=== PATIENT | male | born 1960 | race Two or more races ===

== ENCOUNTER 2018-10-05 06:28 | Day surgery (SDC) | payer OTHER ==
--- NOTE | 2018-10-04 19:28 | Pre-Procedure Note/Attestation ---
Pre-Procedure Note/Attestation Complete Prior to Procedure Planned Procedure: left Procedure Narrative: Repair left ear canal stenosis Indications for Procedure Pre-Operative Diagnosis: left ear canal stenosis Attestation I attest that I discussed the nature of the procedure; its benefits; risks and complications; and alternatives (and the risks and benefits of such alternatives ), prior to the procedure, with the patient (or the patient's legal enrollment eligibility representative). I attest that, if there was a reasonable possibility of needing a blood transfusion, the patient (or the patient's legal enrollment eligibility representative) was given the [facility] standardized written summary, pursuant to the Ryder Brian Blood Safety Act ([place] Health and Safety Code # 1645, as amended). I attest that I re-evaluated the patient just prior to the surgery and that there has been no change in the patient's H&P by the pts. PMD with normal labs. Tal Garcia MD Oct 04, 2018 19:28
--- NOTE | 2018-10-04 19:29 | Brief Operative Note ---
Immediate Post Operative Note Operative Note Chief Complaint: Left eacr canal stenosis Pre-op Diagnosis: left ear canal stenosis Procedure: Repair left ear canal stenosis Post-op Diagnosis: same as pre-op Surgeon: Tal Garcia Algologist: none Additional Surgeons: none Anesthesiologist: Erickson Anesthesia: MAC Specimen: yes Complications: none Condition: stable Fluids: D5LR Estimated Blood Loss: minimal Drains: none Packing: Gelfoam Implant(s) used?: No Tal Garcia MD Oct 04, 2018 19:29
--- NOTE | 2018-10-04 19:33 | Discharge Instructions ---
Discharge Instructions Discharge Instructions Follow up with: 10/11/18 pt has appt already to be seen in Dr. Watson's office Activity: light activity Pneumonia Vaccine: pt refused vaccine Influenza Vaccine (Jan to Jun): pt refused vaccine Follow Up Orders Pt. has printed instruction given to him at pre op visit in my office last week. Return to Work/School on: Oct 19, 2018 Special Instructions 3 drops coritsporin suspension to left ear TID x 5 days. For Congestive Heart Failure Reminder Report to your physician any weight gain of 5 pounds or more in one week. Tal Garcia MD Oct 04, 2018 19:33
[2018-10-05] VITALS (13 sets, daily range): BP systolic 105–138; BP diastolic 61–86
[~2018-10-05] VITALS: Ht 175.3 cm; Wt 44.0 kg
[~2018-10-05 06:28] MED LIST: NORCO 5-325 TA1 EACH ORAL
[2018-10-05] MEDS ORDERED: Dexamethasone 4mg/ml vial IVP ONE (07:30)
[2018-10-05] MEDS ORDERED: ceFAZolin sod 1 GM in D5W 55 ML IV ONE (07:30)
[2018-10-05] MEDS ORDERED: SIMVASTATIN10 MG ORAL (07:34)
[2018-10-05 08:02] LABS: ANION GAP 10 mmol/L (5-15); BLOOD UREA NITROGEN 21 mg/dL (7-18); CALCIUM 9.5 MG/DL (8.5-10.1); CARBON DIOXIDE 25 MMOL/L (21-32); CHLORIDE 108 MMOL/L (98-107); CREATININE 0.8 MG/DL (0.55-1.30); POTASSIUM 3.5 MMOL/L (3.5-5.1); SODIUM 143 MMOL/L (136-145)
[2018-10-05 08:39] LABS: BASOPHILS % (AUTO) 1.3 % (0.0-2.0); HEMATOCRIT 43.1 % (42.0-52.0); HEMOGLOBIN 15.2 G/DL (14.2-18.0); LYMPHOCYTES % (AUTO) 35.8 % (20.0-45.0); MEAN CORPUSCULAR VOLUME 87 FL (80-99); NEUTROPHILS % (AUTO) 47.8 % (45.0-75.0); PLATELET COUNT 167 K/UL (150-450); RED BLOOD COUNT 4.96 M/UL (4.70-6.10); RED CELL DISTRIBUTION WIDTH 10.6 % (11.6-14.8); WHITE BLOOD COUNT 4.4 K/UL (4.8-10.8)
--- NOTE | 2018-10-05 08:39 | History and Physical ---
History & Physical (DB) History & Physical History & Physical Chief Complaint: Left ear canal stenosis Reason for Hospitalization: outpt. surgery History obtained from: Left ear canal stenosis from cold water. Right ear operated on last year by me. HPI: is a 58 year old male who presents with left ear canal stenosis. 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 LEFT EAR CANAL STENOSIS Allergy and Immunology ROS: no allergic symptoms or urticaria Hematological and Lymphatic ROS: no swollen glands, unusual bleeding or bruising Endocrine ROS: no polyuria, polydipsia, weight changes, temperature intolerance Respiratory ROS: no cough, shortness of breath, or wheezing Cardiovascular ROS: no chest pain or dyspnea on exertion Gastrointestinal ROS: no abdominal pain, change in bowel habits, or black or bloody stools Musculoskeletal ROS: no myalgias or arthralgias Neurological ROS: no TIA or stroke symptoms Dermatological ROS: no new or changing skin lesions, rashes or pruritis Physical Exam Vitals: Ht. 69 inches, Wt. 205 lbs, BP 120/80, HR 75, RR 14 Intake/Output Summary (Last 24 hours) General appearance: alert, cooperative, no distress, appears stated age EARS: right ear WNL, left ear canal-stenosis Head: Normocephalic, without obvious abnormality, atraumatic Eyes: conjunctivae/corneas clear. PERRL, EOM's intact. Throat: Lips, mucosa, and tongue normal. Teeth and gums normal Neck: supple, symmetrical, trachea midline, no adenopathy, thyroid: not enlarged, symmetric, no tenderness/mass/nodules, no carotid bruit and no JVD Lungs: clear to auscultation bilaterally Heart: regular rate and rhythm, S1, S2 normal, no murmur, click, rub or gallop Abdomen: soft, non-tender. Bowel sounds normal. No masses, no organomegaly Extremities: extremities normal, atraumatic, no cyanosis or edema Pulses: 2+ and symmetric Skin: Skin color, texture, turgor normal. No rashes or lesions Neurologic: Grossly normal Laboratories:Being done at hosp. today. Assessment/Problem List: Left ear canal stenosis Plan:Correction left ear canal stenosis DVT Prophylaxis: scd Code status: full Hospital Classification declaration: Based on this initial evaluation, and depending on the patient's clinical course, I anticipate that this patient will require hospitalization for 2-3 days. Disposition: Once the patient is stable to leave the hospital, I anticipate the patient will likely be discharged to the following environment I spent 70 minutes on this patient's case, and minutes was dedicated to counseling and/or care coordination. Case was discussed with Time of note may not reflect time of encounter. Tal Garcia MD Oct 05, 2018 08:39
[2018-10-05] MEDS ORDERED: Propofol 200mg/20ml IV ONE ×2 (08:44→09:08)
[2018-10-05] MEDS ORDERED: Lidocaine 1% MPF 10mg/ml 5ml ONE (08:44)
[2018-10-05] MEDS ORDERED: Midazolam 2mg/2ml Inj ONE (08:44)
[2018-10-05] MEDS ORDERED: fentaNYL 100 mcg/2 mL IV ONE (08:44)
[2018-10-05] MEDS ORDERED: Dexamethasone 4mg/ml vial ONE (08:45)
[2018-10-05] MEDS ORDERED: LR 1000ml 1,000 ML IVLG SCH (08:51)
[2018-10-05] MEDS ORDERED: Neosporin Oint Ud Pkt TOPIC ONE (08:51)
--- NOTE | 2018-10-05 08:51 | Anethesia Preoperative Eval ---
Anesthesia Pre-op PMH/ROS General Date of Evaluation: Oct 05, 2018 Anesthesiologist: Erickson ASA Score: ASA 2 Mallampati Score Class I : Soft palate, uvula, fauces, pillars visible Class II: Soft palate, uvula, fauces visible Class III: Soft palate, base of uvula visible Class IV: Only hard plate visible Mallampati Classification: Class III Surgeon: Jose Diagnosis: Left ear stenosis Surgical Procedure: Repair left ear canal stenosis Anesthesia History: none Family History: no anesthesia problems Allergies: Coded Allergies: No Known Allergies (Unverified , 10/04/18) Medications: see eMAR Patient NPO?: Yes NPO Date: Oct 04, 2018 NPO Time: 22:00 Past Medical History Cardiovascular: Reports: other - HLD; Denies: HTN, CAD, MD, valve dz, arrhythmia Pulmonary: Denies: asthma, COPD, SHANT, other Gastrointestinal/Genitourinary: Reports: GERD; Denies: CRI, ESRD, other Neurologic/Psychiatric: Denies: dementia, CVA, depression/anxiety, TIA, other Endocrine: Denies: DM, hypothyroidism, steroids, other HEENT: Denies: cataract (L), cataract (R), glaucoma, [place] (L), [place] (R), other Hematology/Immune: Denies: anemia, DVT, bleeding disorder, other Musculoskeletal/Integumentary: Denies: OA, RA, DJD, DDD, edema, other PSxH Narrative: Appy, T&A, right THR Anesthesia Pre-op Phys. Exam Physician Exam Last Vital Signs Date Time Temp Pulse Resp B/P (MAP) Pulse Ox O2 Delivery O2 Flow Rate FiO2 10/05/18 07:44 Room Air 10/05/18 07:41 97.8 46 18 138/86 97 Constitutional: NAD Cardiovascular: RRR Respiratory: CTA Airway Exam Mallampati Score: Class III MO: full ROM: full Anesthesia Pre-op A/P Labs Hematology Test 10/05/18 07:15 White Blood Count 4.4 K/UL (4.8-10.8) L Red Blood Count 4.96 M/UL (4.70-6.10) Hemoglobin 15.2 G/DL (14.2-18.0) Hematocrit 43.1 % (42.0-52.0) Mean Corpuscular Volume 87 FL (80-99) Mean Corpuscular Hemoglobin 30.7 PG (27.0-31.0) Mean Corpuscular Hemoglobin Concent 35.3 G/DL (32.0-36.0) Red Cell Distribution Width 10.6 % (11.6-14.8) L Platelet Count 167 K/UL (150-450) Mean Platelet Volume 7.1 FL (6.5-10.1) Neutrophils (%) (Auto) 47.8 % (45.0-75.0) Lymphocytes (%) (Auto) 35.8 % (20.0-45.0) Monocytes (%) (Auto) 9.0 % (1.0-10.0) Eosinophils (%) (Auto) 6.0 % (0.0-3.0) H Basophils (%) (Auto) 1.3 % (0.0-2.0) Coagulation Test 10/05/18 07:15 Prothrombin Time 10.7 SEC (9.30-11.50) Prothromb Time International Ratio 1.0 (0.9-1.1) Activated Partial Thromboplast Time 28 SEC (23-33) Chemistry Test 10/05/18 07:15 Sodium Level 143 MMOL/L (136-145) Potassium Level 3.5 MMOL/L (3.5-5.1) Chloride Level 108 MMOL/L (98-107) H Carbon Dioxide Level 25 MMOL/L (21-32) Anion Gap 10 mmol/L (5-15) Blood Urea Nitrogen 21 mg/dL (7-18) H Creatinine 0.8 MG/DL (0.55-1.30) Estimat Glomerular Filtration Rate > 60 mL/min (>60) Glucose Level 99 MG/DL (74-106) Calcium Level 9.5 MG/DL (8.5-10.1) Studies Pre-op Studies: EKG - sr Risk Assessment & Plan Assessment: ASA II Plan: GA Status Change Before Surgery: No Pre-Antibiotics Drug: Ancef 2g Given Within 1 Hr of Incision: Suyapa Hercules MD Oct 05, 2018 08:51
[2018-10-05] MEDS ORDERED: Lidocaine 1% 10mg/ml/Epi 0.005mg/ml 30ml vial INJ ONE (08:52)
[2018-10-05] MEDS ORDERED: DiphenhydrAMINE 50mg/ml Inj IVP PRN (09:00)
[2018-10-05] MEDS ORDERED: Midazolam 2mg/2ml Inj IVP PRN (09:00)
[2018-10-05] MEDS ORDERED: Sterile Water Irrig 1000ml IRRIG ONE (09:00)
[2018-10-05] MEDS ORDERED: NS Irrig 1000ml ONE (09:00)
[2018-10-05] MEDS ORDERED: Metoclopramide 10mg/2ml Inj IVP PRN ×2 (09:00→17:01)
[2018-10-05] MEDS ORDERED: Hydromorphone 0.5mg/0.5ml inj IVP PRN (09:00)
[2018-10-05] MEDS ORDERED: LORazepam Inj 2mg/ml 1ml IV PRN (09:00)
[2018-10-05] MEDS ORDERED: LR 1000ml ONE (09:00)
[2018-10-05] MEDS ORDERED: fentaNYL 100 mcg/2 mL IV PRN (09:00)
[2018-10-05] MEDS ORDERED: Hydrogen Peroxide 473ml Bottle TOPIC ONE (09:10)
[2018-10-05] MEDS ORDERED: CIPRODEX LEFT EAR ONE (09:30)
--- NOTE | 2018-10-05 09:46 | 48 Hour Post Anesthesia Eval ---
Post Anesthesia Evaluation Procedure: Repair of left ear canal stenosis Date of Evaluation: Oct 05, 2018 Airway: patent Nausea: No Vomiting: No Pain Intensity: 0 Hydration Status: adequate Cardiopulmonary Status: at baseline Mental Status/LOC: patient returned to baseline Post-Anesthesia Complications: 0 Follow-up care needed: ready to discharge Suyapa Dotson MD Oct 05, 2018 09:46
--- NOTE | 2018-10-05 09:46 | Immediate Post-Op Evaluation ---
Immediate Post-Op Evalulation Immediate Post-Op Evalulation Procedure: Repair of left ear canal stenosis Date of Evaluation: Oct 05, 2018 Time of Evaluation: 09:48 IV Fluids: 700 Blood Products: 0 Estimated Blood Loss: min Urinary Output: 0 Blood Pressure Systolic: 105 Blood Pressure Diastolic: 62 Pulse Rate: 51 Respiratory Rate: 18 O2 Sat by Pulse Oximetry: 98 Temperature (Fahrenheit): 97.1 Pain Score (1-10): 0 Nausea: No Vomiting: No Complications 0 Patient Status: awake, reacts, patent, none Hydration Status: adequate Drug: Ancef 2g Given Within 1 Hr of Incision: Yes Suyapa Dotson MD Oct 05, 2018 09:46
--- NOTE | 2018-10-05 15:00 | Operative Note - Dictated ---
DATE OF OPERATION: 10/05/2018 SURGEON: Tal Garcia M.D. SATELLITE INSTRUCTION FACILITATOR: None. ANESTHESIOLOGIST: Lupis Almendarez M.D. ANESTHESIA: LMA general anesthesia as well as 1 mL of 1% lidocaine, 1000 epinephrine injected into the ear canal. INDICATION FOR SURGERY: Left ear canal stenosis. PREOPERATIVE DIAGNOSIS: Left ear canal stenosis. POSTOPERATIVE DIAGNOSIS: Left ear canal stenosis. FINDINGS: Left ear canal stenosis. PROCEDURE: Repair of left ear canal stenosis transcanal approach. TECHNIQUE: The patient was prepped and draped in the usual manner via LMA general anesthesia. Time-out was performed. All agreed as the procedure to be done and the proper equipment was available and in the room which it was. I then proceeded to bring the microscope into place to inject with 0.7 mL 1% lidocaine, 1000 epinephrine. I then developed the flap with a small clearing off the exostoses, which were medial and inferior. I then used a small osteotome to remove them. Please note that before using the osteotome, Gel-Foam was placed over the tympanic membrane to protect it. Once the fragments were removed from the stenosis, the area was irrigated. Flaps were put back in place. The Gel-Foam was removed. The eardrum was examined in great condition, no damage. I then placed a new Gel-Foam with Ciprodex on it and then lying this over the flaps. Once the flaps were covered with the Gel-Foam, I then placed antibiotic ointment lateral to that in the ear canal. EBL: Minimal. SPONGE AND NEEDLE COUNT: Correct. The patient is alert, awake, and stable in the operating room and in the recovery room without any issues. Tal Garcia M.D. DR: CHRISTIAN JOB#: [id number] CC:
--- NOTE | 2018-10-05 16:01 | Cardiology Report ---
APPROVED REPORT EKG Measurement Heart [id number] FL [id number] [id number] Marked sinus bradycardia with sinus arrhythmia Cannot rule out Anterior infarct, age undetermined Abnormal ECG
[2018-10-05] MEDS ORDERED: HYDROcodone/Acetamin 5/325 tab ORAL PRN (17:01)
[2018-10-05] MEDS ORDERED: HYDROmorphone 1mg/ml Carpuject SUBQ PRN (17:01)
== END 2018-10-05 11:20 | disposition home or self-care (01) ==
LOC: SUR 06:28
DX: H61.302 Acquired stenosis of left external ear canal, unspecified (principal); R00.1 Bradycardia, unspecified; I49.9 Cardiac arrhythmia, unspecified; Z86.14 Personal history of Methicillin resistant Staphylococcus aureus infection; Z96.649 Presence of unspecified artificial hip joint; K21.9 Gastro-esophageal reflux disease without esophagitis; E78.5 Hyperlipidemia, unspecified; Z96.641 Presence of right artificial hip joint
CPT/HCPCS: 36415; 69310; 80048; 85025; 85610; 85730; 93005; J0690; J1100; J1170; J2250; J2405; J2704; J3010; 94003; 94150